=== PATIENT | female | born 1930 | race Caucasian/White ===

== ENCOUNTER 2018-01-31 16:46 | Emergency (ER) | payer MEDICARE, OTHER ==
[2018-01-31 18:13] LABS: ANION GAP 11.1
[2018-01-31] MEDS ORDERED: Furosemide 40 MG Tab PO ONE (18:43)
--- NOTE | 2018-01-31 18:45 | EDM.PDOC ---
Scribed by Lisha Villatoro 01/31/18 [id number] for Verónica Mcintosh NP ED HPI GENERAL MEDICAL PROBLEM - General Chief Complaint: Respiratory Problem Stated Complaint: chest pain [id number] Time Seen by Provider: 01/31/18 17:40 Source of Information: Reports: Patient, RN, RN Notes Reviewed History Limitations: Reports: No Limitations - History of Present Illness INITIAL COMMENTS - FREE TEXT/NARRATIVE: Patient presents to ER starting last week on Thursday began not feeling well. She began having difficulty breathing and twinge in the chest. No fever or chills. She has had chest pain with cough and sputum. Onset Date: 01/26/18 Duration: Getting Worse Location: Reports: Chest Quality: Reports: Ache Severity: Mild Improves with: Reports: None Worsens with: Reports: None Associated Symptoms: Reports: No Other Symptoms - Related Data Allergies Allergy/AdvReac Type Severity Reaction Status Date / Time latex Allergy Swelling Verified 01/31/18 17:13 Home Meds: Home Meds atorvaSTATin [Lipitor] 20 mg PO DAILY 01/31/18 [History] Past Medical History HEENT History: Reports: Glaucoma Cardiovascular History: Reports: High Cholesterol Respiratory History: Reports: Pneumonia, Recurrent Social & Family History - Tobacco Use Smoking Status *Q: Never Smoker - Recreational Drug Use Recreational Drug Use: No ED ROS GENERAL - Review of Systems Review Of Systems: ROS reveals no pertinent complaints other than HPI. ED EXAM, GENERAL - Physical Exam Exam: See Below Exam Limited By: No Limitations General Appearance: Alert, WD/WN, No Apparent Distress Eye Exam: Bilateral Eye: EOMI, Normal Inspection, PERRL Ears: Normal External Exam, Normal Canal, Hearing Grossly Normal, Normal TMs Nose: Normal Inspection, Normal Mucosa, No Blood Throat/Mouth: Normal Inspection, Normal Lips, Normal Teeth, Normal Gums, Normal Oropharynx, Normal Voice, No Airway Compromise Head: Atraumatic, Normocephalic Neck: Normal Inspection, Supple, Non-Tender, Full Range of Motion Respiratory/Chest: No Respiratory Distress, Lungs Clear, Normal Breath Sounds, No Accessory Muscle Use, Chest Non-Tender Cardiovascular: Normal Peripheral Pulses, Regular Rate, Rhythm, No Edema, No Gallop, No JVD, No Murmur, No Rub GI/Abdominal: Normal Bowel Sounds, Soft, Non-Tender, No Organomegaly, No Distention, No Abnormal Bruit, No Mass (Female) Exam: Deferred Rectal (Female) Exam: Deferred Back Exam: Normal Inspection, Full Range of Motion, NT Extremities: Normal Inspection, Normal Range of Motion, Non-Tender, Normal Capillary Refill, No Pedal Edema Neurological: Alert, Oriented, CN II-XII Intact, Normal Cognition, Normal Gait, Normal Reflexes, No Motor/Sensory Deficits Psychiatric: Normal Affect, Normal Mood Skin Exam: Warm, Dry, Intact, Normal Color, No Rash Lymphatic: No Adenopathy Course - Vital Signs Last Recorded V/S: Last Vital Signs Temp 97.4 F 01/31/18 17:04 Pulse 82 01/31/18 17:04 Resp 20 01/31/18 17:04 BP 152/84 H 01/31/18 17:04 Pulse Ox 98 01/31/18 17:04 - Orders/Labs/Meds Orders: Active Orders 24 hr Category Date Time Status Furosemide [Lasix] Med 01/31/18 18:43 Once 40 mg PO ONETIME ONE Labs: Laboratory Tests 01/31/18 01/31/18 01/31/18 Range/Units 17:41 17:47 17:47 WBC 4.4 L (5.0-10.0) 10^3/uL RBC 4.29 (4.2-5.4) 10^6/uL Hgb 12.8 (12.0-16.0) g/dL Hct 39.9 (37.0-47.0) % MCV 93.0 (80-100) fL MCH 29.8 (27.0-34.0) pg MCHC 32.1 L (33.0-35.0) g/dL Plt Count 194 (150-450) 10^3/uL Neut % (Auto) 62.6 (42.2-75.2) % Lymph % (Auto) 25.8 (20.5-50.1) % [place] % (Auto) 8.4 H (2-8) % Eos % (Auto) 2.5 (1.0-3.0) % Baso % (Auto) 0.7 (0.0-1.0) % Sodium 138 (135-145) mmol/L Potassium 4.1 (3.6-5.0) mmol/L Chloride 103 (101-111) mmol/L Carbon Dioxide 28.0 (21.0-31.0) mmol/L Anion Gap 11.1 BUN 23 H (7-18) mg/dL Creatinine 1.1 (0.6-1.3) mg/dL Est Cr Clr Drug Dosing 36.37 mL/min Estimated GFR (MDRD) 47 BUN/Creatinine Ratio 20.90 Glucose 102 (74-105) mg/dL Calcium 8.7 (8.4-10.2) mg/dl Total Bilirubin 0.6 (0.2-1.0) mg/dL AST 29 (10-42) IU/L ALT 46 (10-60) IU/L Alkaline Phosphatase 66 (42-121) IU/L B-Natriuretic Peptide 240 H (0-100) pg/ml Total Protein 7.0 (6.7-8.2) g/dl Albumin 3.8 (3.2-5.5) g/dl Globulin 3.2 Albumin/Globulin Ratio 1.19 - Radiology Interpretation Free Text/Narrative:: Chest xray: IMPRESSION: Pulmonary vascular congestion with small pleural effusions Thank you for allowing us to participate in the care of your patient. Dictated and Authenticated by: Price Watkins MD 01/31/2018 6:08 PM Central Time ([place] & [place]) See rad report Departure - Departure Time of Disposition: 18:43 Disposition: Home, Self-Care 01 Condition: Fair Clinical Impression: Congestive heart failure Qualifiers: Heart failure type: other Qualified Code(s): I50.9 - Heart failure, unspecified - Discharge Information *PRESCRIPTION DRUG MONITORING PROGRAM REVIEWED*: No *COPY OF PRESCRIPTION DRUG MONITORING REPORT IN PATIENT ARIA: No Instructions: Shortness of Breath, Adult, [id number], Heart Failure, Easy-to- Read Forms: ED Department Discharge Additional Instructions: Call the Clinic tomorrow to make an appointment to follow up with your PCP. New onset CHF BNP - 240 CXR: Pulmonary cascular congestion with small pleural effusions - My Orders Last 24 Hours: My Active Orders 01/31/18 18:43 Furosemide [Lasix] 40 mg PO ONETIME ONE - Assessment/Plan Last 24 Hours: My Active Orders 01/31/18 18:43 Furosemide [Lasix] 40 mg PO ONETIME ONE I have read and agree with the documentation that has been completed regarding this visit. By signing this record, I attest that the documentation was completed in my physical presence and is an accurate record of the encounter.
== END 2018-01-31 18:56 | disposition home or self-care (01) ==
LOC: DL.ED 16:46
DX: I50.9 Heart failure, unspecified (principal); E78.00 Pure hypercholesterolemia, unspecified; Z91.040 Latex allergy status
CPT/HCPCS: 36415; 71046; 80053; 83880; 85025; 99285; A9270; 99283